=== PATIENT | male | born 1950 | race Asian ===

== ENCOUNTER 2022-09-11 15:17 | Emergency (ER) | payer OTHER ==
[~2022-09-11] VITALS: Ht 170.2 cm; Wt 79.8 kg
--- NOTE | 2022-09-11 15:17 | NUR ---
1512 ems arrived, cpr in progress
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
[2022-09-11] MEDS ORDERED: NOREPINEPHRINE 4 MG/4 ML VIAL IV ONE (15:25)
[2022-09-11] MEDS ORDERED: PRIMARY CRASH CART TRAY MC ONE (15:35)
--- NOTE | 2022-09-11 15:42 | NUR ---
time of 1542, called by yolanda gordon md at this time
--- NOTE | 2022-09-11 15:49 | NUR ---
[facility] called at this time, spoke with Alma, referral number [id number]
--- NOTE | 2022-09-11 16:06 | NUR ---
spoke with lane for professor of vegetable science's office, awaiting call back
--- NOTE | 2022-09-11 17:18 | NUR ---
called lexie from [facility], informed if we can move pt from room to separate room, informed no morgue at our facility. states there was a wrong number on file, informed to update number to [phone]
--- NOTE | 2022-09-11 17:31 | NUR ---
spoke with debra from deputy editor in chief, states someone will call us back for further report.
--- NOTE | 2022-09-11 17:41 | NUR ---
ATTEMPTED TO CONTACT PTS PCP- DR MAGDALENA GILBERT TO NOTIFY HIM OF . LEFT MESSAGE WITH EXCHANGE ([facility])
--- NOTE | 2022-09-11 17:56 | NUR ---
@1512 PT CAME IN FULL ARREST CPR IN PROGRESS. RT AT BEDSIDE TO ASSIST WITH INTUBATION AND BAG THE PT WITH 100% O2. ROSC @1522. PT INTUBATED BY DR CELESTE WITH A 7.5 @23LL. CPR RESTARTED AT 1524 PT WAS BAGGED WITH ABU BAG 100% O2. ROSC @1525. PT CONNETED TO [facility] 450 RATE 16 +5 100%. CALLED TIME OF 1530.
--- NOTE | 2022-09-11 18:32 | NUR ---
spoke with xin from [facility], states they will f/o with family
--- NOTE | 2022-09-11 20:01 | NUR ---
RETURN CALL FROM [facility] WHO SPOKE WITH PRIMARY RN Emily PLATA
--- NOTE | 2022-09-11 20:05 | NUR ---
RETURN CALL FROM [facility] [employer] WHO SPOKE WITH PRIMARY DREW PLATA
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
--- NOTE | 2022-09-11 21:54 | NUR ---
CORONOR TRANSPORT TEAM AT BEDSIDE
--- NOTE | 2022-09-11 22:06 | NUR ---
BODY TAKEN BY FIELD COUNSEL TRANSPORT TEAM
== END 2022-09-11 15:42 ==
LOC: MED 15:17
DX: I46.9 Cardiac arrest, cause unspecified (principal)
CPT/HCPCS: 31500; 92950; 99291; J3490